=== PATIENT | female | born 1985 | race Hispanic/Latino ===

== ENCOUNTER 2019-08-23 10:43 | Emergency (ER) | payer MEDICAID, OTHER ==
[2019-08-23] MEDS ORDERED: ACETAMINOPHEN EXTRA STRENGTH 500 MG TABLET ONE (10:51)
[2019-08-23 12:07] LABS: BASOPHILS % (AUTO) 0.5 % (0.0-5.0); HEMATOCRIT 35.2 % (36-48); LYMPHOCYTES % (AUTO) 9.4 % (21.0-51.0); MEAN CORPUSCULAR HEMOGLOBIN 28.6 pg (27.0-33.0); MEAN CORPUSCULAR VOLUME 86.7 fL (79-99); MONOCYTES % (AUTO) 4.2 % (3.0-13.0); NEUTROPHILS % (AUTO) 84.7 % (40.0-77.0); PLATELET COUNT (AUTO) 178 K/uL (130-400); RED BLOOD CELL COUNT(AUTO) 4.06 MIL/uL (4.00-5.50); RED CELL DISTRIBUTION WIDTH 12.6 % (11.0-15.5)
[2019-08-23] MEDS ORDERED: METHYLPREDNISOLONE SOD SUCC 40MG/ML 1ML ONE (12:11)
[2019-08-23] MEDS ORDERED: GUAIFENESIN-CODEINE 5 ML SYRUP ONE (12:11)
[2019-08-23] MEDS ORDERED: SODIUM CHLORIDE 0.9% 1000ML 1,000 ML IV ONE (12:12)
[2019-08-23 12:21] LABS: ALBUMIN 3.5 g/dL (3.5-5.0); BILIRUBIN,TOTAL 0.7 mg/dL (0.2-1.0); TOTAL PROTEIN, SERUM 7.5 g/dL (6.0-8.3)
== END 2019-08-23 13:17 | disposition home or self-care (01) ==
LOC: EDH 10:43
DX: J20.9 Acute bronchitis, unspecified (principal); J11.1 Influenza due to unidentified influenza virus with other respiratory manifestations; J45.909 Unspecified asthma, uncomplicated
CPT/HCPCS: 36415; 71045; 80053; 85025; 87040 ×2; 87804 ×2; 87807; 96374; 99284; J2920; J7030